=== PATIENT | female | born 1960 | race Caucasian/White ===

== ENCOUNTER 2021-10-25 07:17 | Observation (INO) ==
[~2021-10-25 07:17] MED LIST: Buffered Lidocaine 1% SYRIN 1 ml INTRADERM ONE; Famotidine IV 10 MG/ML 2 ml VIAL (20 mg) IV ONE; Lactated Ringers 1000 ml BAG 1,000 ML IV SCH; Lidocaine 2% PF 5 ML VIAL ONE; Propofol 10 MG/ML 20 ML BTL ONE
[2021-10-25] MEDS ORDERED: Famotidine IV 10 MG/ML 2 ml VIAL (20 mg) ONE (07:40)
[2021-10-25] MEDS ORDERED: ceFAZolin 2 GM PREMIX 2 GM/50 ML BAG ONE (07:40)
[2021-10-25] MEDS ORDERED: Ketamine HCL 50 mg/ml 10 ml VIAL (500 MG) ONE (07:54)
[2021-10-25] MEDS ORDERED: Ondansetron ODT 4 mg TAB 4 MG TAB PO PRN (08:44)
[2021-10-25] MEDS ORDERED: Ondansetron 4 mg VIAL 2 MG/ML 2 ml VIAL IV PRN ×2 (08:44→10:41)
[2021-10-25] MEDS ORDERED: Magnesium Hydroxide LIQ 30 ML UDC PO PRN (08:44)
[2021-10-25] MEDS ORDERED: Morphine 2 MG/ML SYRINGE IV PRN (08:44)
[2021-10-25] MEDS ORDERED: Lactulose 30 ml UDC PO PRN (08:44)
[2021-10-25] MEDS ORDERED: NF: Estradiol VAGINAL TAB (NF) 10 MCG VAG.TAB VAGINAL PRN (08:56)
[2021-10-25] MEDS ORDERED: Midazolam 5 mg/5 ml VIAL 1 mg/ml 5 ml VIAL (5 mg) ONE (09:07)
[2021-10-25] MEDS ORDERED: fentaNYL 250 mcg/5 ml 50 MCG/ML 5 ml VIAL (250 MCG) ONE ×2 (09:11→10:30)
[2021-10-25] MEDS ORDERED: Rocuronium 50 mg VIAL 10 mg/ml 5 ml VIAL (50 mg) ONE (09:11)
[2021-10-25] MEDS ORDERED: ROPIVACAINE 5 MG/ML 30 ML BTL (0.5%) ONE (09:12)
[2021-10-25] MEDS ORDERED: Esmolol 10 MG/ML 10 ML (100 mg) ONE (09:36)
[2021-10-25] MEDS ORDERED: HYDROmorphone 0.5 MG/0.5 ML SYRINGE ONE (09:55)
[2021-10-25] MEDS ORDERED: Ondansetron 4 mg VIAL 2 MG/ML 2 ml VIAL ONE (10:05)
[2021-10-25] MEDS ORDERED: Dexamethasone IV 4 MG/ML VIAL 1 ml VIAL ONE (10:05)
[2021-10-25] MEDS ORDERED: hydrALAZINE 20 mg/ml 1 ML Vial IV ONE (10:28)
[2021-10-25] MEDS ORDERED: Phenylephrine 40 mcg/mL 10mL (400mcg) SYRINGE ONE (10:36)
[2021-10-25] MEDS ORDERED: Naloxone 0.4 mg VIAL 0.4 mg/ml 1 ml VIAL IV PRN (10:41)
[2021-10-25] MEDS ORDERED: fentaNYL 100 mcg/2 ml 50 MCG/ML VIAL IV PRN (10:41)
[2021-10-25] MEDS ORDERED: HYDROmorphone 1 MG/1 ML SYRINGE IV PRN (10:41)
[2021-10-25] MEDS: Lactated Ringers 1000 ml BAG 1,000 ML IV SCH (13:28)
[2021-10-25] MEDS: Vitamin THERAPEUTIC TAB PO SCH (13:54)
[2021-10-25] MEDS: Magnesium Hydroxide LIQ 30 ML UDC PO SCH ×2 (13:54→20:43)
[2021-10-25] MEDS: ceFAZolin VIAL 1 GM in NS 0.9% 50 ML 50 ML IVPB SCH (18:49)
[2021-10-26] MEDS: Lactated Ringers 1000 ml BAG 1,000 ML IV SCH (01:56)
[2021-10-26] MEDS: ceFAZolin VIAL 1 GM in NS 0.9% 50 ML 50 ML IVPB SCH ×2 (03:33→10:34)
[2021-10-26 06:44] LABS: Hematocrit 24 % (35-47); Mean Platelet Volume 6.8 fL (7.4-10.4); Platelet Count 170 10^3/uL (150-450)
[2021-10-26 07:15] LABS: Calcium 8.5 mg/dL (8.6-10.3); Potassium 3.8 mmol/L (3.5-5.0); eGFR CKD-EPI 102.9 (>60)
[2021-10-26] MEDS ORDERED: Iohexol 350 (CONTRAST) 500 ML MDV IV ONE (09:41)
[2021-10-26] MEDS: Magnesium Hydroxide LIQ 30 ML UDC PO SCH ×2 (09:47→22:16)
[2021-10-26] MEDS: Vitamin THERAPEUTIC TAB PO SCH (09:47)
[2021-10-26 12:14] LABS: High Sensitivity Troponin 1 Hr 4 pg/mL (<15)
[2021-10-26 16:06] LABS: Hematocrit 24 % (35-47); Hemoglobin 8.2 g/dL (12.0-16.0)
[2021-10-26 20:05] LABS: ABS Lymphocytes 0.5 10^3/ul (1.0-4.8); ABS Monocytes 0.5 10^3/ul (0-0.8); ABS Neutrophils 4.4 10^3/ul (1.5-7.7); Eosinophil % 0.8 %; Hematocrit 24 % (35-47); Hemoglobin 7.8 g/dL (12.0-16.0); Lymphocyte % 8.6 %; Mean Corpuscular HGB Conc 33 g/dL (31-36); Mean Corpuscular Hemoglobin 31 pg (27-31); Mean Corpuscular Volume 95 fL (80-97); Mean Platelet Volume 6.7 fL (7.4-10.4); Platelet Count 169 10^3/uL (150-450); Red Blood Count 2.53 10^6 /uL (3.70-4.87); Red Cell Distribution Width 20 % (10-15); White Blood Count 5.5 10^3/uL (3.5-10.8)
[2021-10-26 20:54] LABS: Albumin 3.4 g/dL (3.2-5.2); Albumin/Globulin Ratio 1.7 (1-3); Calcium 8.7 mg/dL (8.6-10.3); Magnesium 1.9 mg/dL (1.9-2.7); Potassium 4.4 mmol/L (3.5-5.0); Total Bilirubin 0.5 mg/dL (0.2-1.0); Total Protein 5.4 g/dL (6.4-8.9); eGFR CKD-EPI 101.2 (>60)
[2021-10-26 23:11] LABS: Urine Appearance Clear; Urine Bilirubin Negative (Negative); Urine Blood Negative (Negative); Urine Color Straw; Urine Glucose Negative (Negative); Urine Ketones Negative (Negative); Urine Nitrite Negative (Negative); Urine Protein Negative (Negative); Urine Specific Gravity 1.008 (1.002-1.030); Urine Urobilinogen Negative (Negative)
[2021-10-26 23:16] LABS: Urine Bacteria 1+ (Absent); Urine Red Blood Cell 1+(3-5/hpf) (Absent); Urine Squamous Epithelial Cell Present (Absent); Urine White Blood Cell Trace(0-5/hpf) (Absent)
[2021-10-27 05:53] LABS: Hematocrit 28 % (35-47); Mean Platelet Volume 7.5 fL (7.4-10.4); Platelet Count 131 10^3/uL (150-450)
[2021-10-27 08:01] VITALS: BP 101/66
[2021-10-27] MEDS: Vitamin THERAPEUTIC TAB PO SCH (08:41)
[2021-10-27] MEDS: Magnesium Hydroxide LIQ 30 ML UDC PO SCH (08:42)
== END 2021-10-27 10:32 | disposition home or self-care (01) ==
LOC: OR 07:17 → SSU 07:17
PROVIDERS: ADMIT Orthopaedic Surgery Adult Reconstructive Orthopaedic Surgery; ATTEND Orthopaedic Surgery Adult Reconstructive Orthopaedic Surgery